=== PATIENT | female | born 1995 | race Caucasian/White ===

== ENCOUNTER 2020-07-14 11:58 | Emergency (ER) | payer MEDICAID ==
[~2020-07-14] VITALS: Ht 162.6 cm; Wt 61.4 kg
[2020-07-14 12:20] VITALS: BP 116/86; Ht 162.6 cm; Wt 61.4 kg
[2020-07-14 12:58] LABS: BASOPHILS 0.1 % (0-2); EOSINOPHILS 0.1 % (0-7); HEMATOCRIT 39.8 % (36.0-48.0); IMMATURE GRANULOCYTES 0.3 % (0-5); LYMPHOCYTES 11.5 % (15-50); MCHC 32.7 g/dL (31.0-37.0); MCV 85.8 fL (80.0-100.0); MEAN PLATELET VOLUME 11.5 fL (7.4-10.4); MONOCYTES 5.4 % (2-11); NEUTROPHILS 82.6 % (40-80); PLATELET COUNT 244 10x3/uL (130-400); RBC 4.64 10x6/uL (4.00-5.40); RDW 14.8 % (11.5-14.5); WBC 11.2 10x3/uL (4.8-10.8)
[2020-07-14 13:07] LABS: BILIRUBIN NEGATIVE (NEGATIVE); CALC OSMOLALITY 270 mosm/kg (275-300); CARBON DIOXIDE 24.1 mmol/L (21.0-32.0); CHLORIDE - SERUM 102 mmol/L (98-107); CREATININE - SERUM 0.6 mg/dL (0.6-1.3); GLUCOSE 76 mg/dL (74-106); HCG URINE POSITIVE (NEGATIVE); KETONE LARGE mg/dL (NEGATIVE); NITRITE NEGATIVE (NEGATIVE); POTASSIUM - SERUM 3.6 mmol/L (3.5-5.1); SODIUM 137 mmol/L (136-145); UREA NITROGEN 8 mg/dL (7-18); UROBILINOGEN NORMAL mg/dL (< 2); eGFR NON AFRICAN AMERICAN > 90 mL/min (90-120)
[2020-07-14 13:09] LABS: BACTERIA FEW HPF (NONE SEEN); EPITHELIAL CELLS 0-5 /hpf (0-5)
[2020-07-14 13:34] LABS: ALBUMIN 4.1 g/dL (3.4-5.0); ALKALINE PHOSPHATASE 78 U/L (30-120); ALT (SGPT) 16 U/L (10-68); AMYLASE - SERUM 31 U/L (25-115); BILIRUBIN - TOTAL 0.62 mg/dL (0.2-1.3); HCG - QUANTITATIVE (MATERNAL) 60700 mIU/mL; LIPASE 52 U/L (73-393); PROTEIN - SERUM 7.7 g/dL (6.4-8.2)
[2020-07-14] MEDS ORDERED: KEFLEX500 MG PO (15:49)
[2020-07-14] MEDS ORDERED: REGLAN10 MG PO (15:49)
== END 2020-07-14 16:06 | disposition home or self-care (01) ==
LOC: D.ER 11:58
PROVIDERS: Family Medicine
DX: O23.41 Unspecified infection of urinary tract in pregnancy, first trimester (principal); O21.9 Vomiting of pregnancy, unspecified; Z3A.01 Less than 8 weeks gestation of pregnancy; M41.9 Scoliosis, unspecified; R10.30 Lower abdominal pain, unspecified; R30.0 Dysuria

== ENCOUNTER 2020-07-18 11:03 | Emergency (ER) | payer MEDICAID ==
[~2020-07-18] VITALS: Ht 162.6 cm; Wt 81.8 kg
[~2020-07-18 11:03] MED LIST: KEFLEX500 MG PO; REGLAN10 MG PO
[2020-07-18 11:16] VITALS: Ht 162.6 cm; Wt 81.8 kg
[2020-07-18 12:53] LABS: BASOPHILS 0.1 % (0-2); EOSINOPHILS 0.1 % (0-7); HEMATOCRIT 39.4 % (36.0-48.0); IMMATURE GRANULOCYTES 0.3 % (0-5); LYMPHOCYTES 18.8 % (15-50); MCV 84.7 fL (80.0-100.0); MEAN PLATELET VOLUME 11.7 fL (7.4-10.4); MONOCYTES 6.1 % (2-11); NEUTROPHILS 74.6 % (40-80); PLATELET COUNT 256 10x3/uL (130-400); RBC 4.65 10x6/uL (4.00-5.40); RDW 14.7 % (11.5-14.5)
[2020-07-18 13:01] LABS: CALC OSMOLALITY 270 mosm/kg (275-300); CALCIUM 8.8 mg/dL (8.5-10.1); CHLORIDE - SERUM 102 mmol/L (98-107); CREATININE - SERUM 0.5 mg/dL (0.6-1.3); GLUCOSE 72 mg/dL (74-106); POTASSIUM - SERUM 3.5 mmol/L (3.5-5.1); SODIUM 137 mmol/L (136-145); UREA NITROGEN 6 mg/dL (7-18); eGFR NON AFRICAN AMERICAN > 90 mL/min (90-120)
[2020-07-18 13:31] LABS: ALKALINE PHOSPHATASE 77 U/L (30-120); ALT (SGPT) 14 U/L (10-68); BILIRUBIN - TOTAL 0.45 mg/dL (0.2-1.3); HCG - QUANTITATIVE (MATERNAL) 115113 mIU/mL; PROTEIN - SERUM 7.7 g/dL (6.4-8.2); TROPONIN-I < 0.017 ng/mL (0.000-0.060)
[2020-07-18 15:52] LABS: NITRITE NEGATIVE (NEGATIVE)
[2020-07-18 15:53] LABS: BILIRUBIN NEGATIVE (NEGATIVE); KETONE LARGE mg/dL (NEGATIVE); UROBILINOGEN NORMAL mg/dL (< 2)
[2020-07-18 16:01] LABS: BACTERIA MODERATE HPF (NONE SEEN)
[2020-07-18 17:33] VITALS: BP 103/58
== END 2020-07-18 17:34 | disposition home or self-care (01) ==
LOC: D.ER 11:03
PROVIDERS: Emergency Medicine
DX: O23.41 Unspecified infection of urinary tract in pregnancy, first trimester (principal); Z3A.01 Less than 8 weeks gestation of pregnancy; R07.89 Other chest pain; E86.0 Dehydration; K29.70 Gastritis, unspecified, without bleeding; R79.89 Other specified abnormal findings of blood chemistry